=== PATIENT | female | born 1975 | race Caucasian/White ===

== ENCOUNTER 2016-11-05 07:12 | Inpatient (IN) | payer BC ==
[~2016-11-05 07:12] MED LIST: OXYTOCIN IN LR 500 ML IV ONE
[2016-11-05] MEDS ORDERED: LIDOCAINE 1% (PRES FREE) 30 ML VIAL ONE (07:35)
[2016-11-05] MEDS ORDERED: IV START KIT ONE (07:35)
[2016-11-05] MEDS ORDERED: SODIUM CHLORIDE 0.9% FLUSH 10 ML ONE (07:35)
[2016-11-05] MEDS ORDERED: OXYTOCIN 10 UNITS/ML VIAL ONE (07:35)
[2016-11-05] MEDS ORDERED: MINERAL OIL 25 ML BOT ONE (07:35)
[2016-11-05] MEDS ORDERED: LIDOCAINE Viscous 2% 15 ML UDCUP ONE (07:36)
[2016-11-05] MEDS ORDERED: PUMP TUBING ONE (07:36)
[2016-11-05] MEDS ORDERED: OXYTOCIN IN LR 500 ML IV ONE (07:36)
[2016-11-05] MEDS ORDERED: LACTATED RINGERS 1,000 ML IV SCH (08:00)
[2016-11-05] MEDS: LACTATED RINGERS 1,000 ML IV PRN ×2 (08:10→11:52)
[2016-11-05 08:13] VITALS: BMI 31.8
[2016-11-05] MEDS: OXYTOCIN IN LR 500 ML IV PRN ×2 (08:21→16:09)
[2016-11-05 08:26] LABS: HEMATOCRIT 33.8 % (37.0-47.0); HEMOGLOBIN 11.6 gm/l (12.0-16.0); MEAN CELL VOLUME 87.3 fl (81.0-99.0); MEAN CORPUSCULAR HGB CONC 34.3 g/dl (33.0-37.0); RED CELL DISTRIBUTION WIDTH 12.3 % (11.5-14.5)
--- NOTE | 2016-11-05 17:03 | PDOC36 ---
Provider Note Subject: S/ Painful contractions but coping O/ AF VSS FHT baseline 125, moderate variability, sometimes decreased. Early decels, a few accels, a few variables TOCO Q3 Pitocin 4 mu SVE on hands and knees 6/90% station not able to determine. IMP/P 39 week IUP Active labor, expectant managment. Continue to titrate pitocin and decrease if changes in tracing become worrisome. Will stay in house until delivery.
--- NOTE | 2016-11-05 17:23 | PDOC1 ---
- HPI 41 year old at 39-0/7 weeks gestational age by LMP, confirmed with 11- week ultrasound who presents for induction due to AMA. Her has been complicated by some constipation, anxiety and concerns about developing preeclampsia. She has had headaches without hypertension or signficant proteinuria. She has had some visual changes and sens of flashing lights and tracers in the 3rd trimester and evaluation for preeclampsia at that time was negative, phone consult was made with M at this time and elected to continue to follow and that perhaps her headaches were migraines or atypical migraines. She started a Magnesium supplement and that did seem to help. Today patient denies any changes in health. Her course has been followed for the following problem list. Severe Preeclampsia affecting prior with 32 week delivery. Was placed on Baby ASA 81 mg daily from 13-38 weeks AMA Headaches Glucosuria SOCIAL HISTORY: Marital status: to Eder No Tobacco, alcohol use, or drug use. FAMILY HISTORY: Noncontributory Allergies/Adverse Reactions: Allergies Sulfa (Sulfonamide Antibiotics) Allergy (Severe, Verified 11/02/16 20:30) Hives - Labs & Studies LABS: Blood Type-A+, Antibody NEG, Rubella Immune, RPR-Negative, HbsAg-Negative, HIV-Negative Pap negative, GC/Chlamydia-Negative, UA-Negative, Quad/Integrated Screen-Negative--NIPT, 1 hr GTT-146, 3 hr GTT normal, GBS-negative - Review of Systems Some headaches and tracers More anxiety over the weekend and some decreased FM--was seen at [facility] and had reactive NST - Physical Exam General: Afebrile Psych/Mental Status: Mood/Affect Appropriate, Anxious Neurological: Grossly Intact, Alert, Oriented x 4 Genitourinary: Normal Female Genitalia (SVE 3/50/-3 FHT 140 moderate variablity with accels TOCO irregular) Extremities: Full ROM, No Edema - Assessment & Plan 41 y/o at 393-0/7 weeks by LMP who will present for elective induction due to AMA Discussed the risk of induction and indication. We are both pleased that she has made it to 39 weeks without needing induced. She is ready to move forward. She does not appear to need any further cervical ripening with a Bishops of 6. I recommended to her that we start with Pitocin and AROM when head is low enough to do so safely and hopefully her body will take over and we can titrate back on the Pitocin. Questions were solicited and answered to their apparent satisfaction.
--- NOTE | 2016-11-05 17:26 | PDOC36 ---
Provider Note Subject: S/ Managing contractions on Pitocin 5 mu 0/ Pitocin 5 mu FHT 130 mod variability +Accels, rare variable TOCO Q3 SVE /-2 AROM clear A/P 41 yo at 39 weeks induction for AMA AROM--doing well continue with plan, titrate pitocin down if her body takes over into active labor
[2016-11-05] MEDS ORDERED: MINERAL OIL 25 ML BOT TP ONE (17:59)
[2016-11-05] MEDS ORDERED: FENTANYL 100 MCG/2 ML VIAL IV ONE (18:09)
[2016-11-05] MEDS ORDERED: LIDOCAINE 1% (PRES FREE) 30 ML VIAL SUB-Q ONE (18:19)
[2016-11-05] MEDS ORDERED: LACTATED RINGERS 1,000 ML IV PRN (19:19)
[2016-11-05] MEDS ORDERED: CALCIUM CARBONATE 500 MG TAB.CHEW PO PRN (19:19)
[2016-11-05] MEDS ORDERED: LANOLIN 50 APPLIC/7G TUBE TP PRN (19:19)
[2016-11-05] MEDS ORDERED: OXYCODONE HCL 5 MG TABLET PO PRN (19:19)
--- NOTE | 2016-11-05 19:29 | PCMDEL ---
Delivery Note - Labor 1st stage (hr/min):: 1336--1756 2 hours 20 minutes 2nd stage (hr/min):: 1756--1801 5 minutes 3rd stage (hr/min):: 1801--1808 7 minutes Total (hr/min):: 2hours 32 minutes - Delivery Delivery (Date): 11/05/16 Delivery (Time): 18:01 Gender: Male Weight: 4.135 kg Presentation: Cephalic Position: OA Umbilical Cord: 3 Vessel, True Knot (loose knot) Delayed Cord Clamping:: > 3 min 1 Minute Total: 9 5 Minute Total: 9 Placenta:: intact EBL:: 500mls Perineum:: 2nd degree repaired with 3-0 vicryl. Suture:: 3-0 vicryl Anesthesia/Meds:: 40mls lidocaine Length ROM:: 1336--1801 4 hours 25 minutes Comments:: Shoulder dystocia for 40 seconds. Pt not pushing and would not bring her legs up, difficult to get her legs up and unable to have RN reach for suprapubic pressure. Right hand was inserted into vagina and posterior arm was able to be grasped and swept cupping elbow x 2 attempts to reduce shoulder and then with gentle downward pressure of the head the anterior shoulder was delivered.
[2016-11-05] MEDS: IBUPROFEN 800 MG TABLET PO SCH (20:13)
[2016-11-05] MEDS: BENZOCAINE/MENTHOL 60 APPLIC/BOT TP PRN (20:20)
[2016-11-05] MEDS: HYDROCODONE/ACETAMINOPHEN 5/325MG TABLET PO PRN (20:41)
[2016-11-05] MEDS: DOCUSATE SODIUM 100 MG CAPSULE PO SCH (20:59)
[2016-11-06] MEDS: IBUPROFEN 800 MG TABLET PO SCH ×4 (02:33→21:20)
[2016-11-06] MEDS: HYDROCODONE/ACETAMINOPHEN 5/325MG TABLET PO PRN ×3 (02:33→18:14)
[2016-11-06 07:17] LABS: HEMATOCRIT 28.6 % (37.0-47.0); HEMOGLOBIN 9.7 gm/l (12.0-16.0)
[2016-11-06] MEDS: DOCUSATE SODIUM 100 MG CAPSULE PO SCH (08:35)
--- NOTE | 2016-11-06 14:13 | PDOC44 ---
- Subjective Day: 1 Reports Pain Tolerable, Reports , Reports Lochia Light, Reports Tolerating Regular Diet - Objective Temp Pulse Resp BP Pulse Ox 98.0 F 76 16 103/63 11/06/16 08:25 11/06/16 08:25 11/06/16 08:25 11/06/16 08:25 Lab Results 11/06/16 06:58 Hgb 9.7 L Hct 28.6 L Current Medications Generic Name Dose Route Start Last Admin Trade Name Freq PRN Reason Stop Dose Admin Acetaminophen/Hydrocodone Bitart 1 - 2 tab 11/05/16 19:19 11/06/16 11:50 [place] 5/325 PO 1 tab Q4H PRN Administration Pain (Moderate) Benzocaine/Menthol 1 applic 11/05/16 19:19 11/05/16 20:20 Dermoplast TP 1 bot PRN PRN Administration Patient Comfort Calcium Carbonate/Glycine 500 - 1,000 mg 11/05/16 19:19 Tums PO BID PRN Indigestion Docusate Sodium 100 mg 11/05/16 19:30 11/06/16 08:35 Colace PO 100 mg DAILY NOÉ Administration Emollient Ointment 1 applic 11/05/16 19:19 Ecq-H-Qfdses TP PRN PRN sore nipples Lactated Ringer's 1,000 mls @ 100 mls/hr 11/05/16 19:19 Lactated Ringers IV .Q10H PRN Titrate per clinical situation Ibuprofen 800 mg 11/05/16 19:30 11/06/16 08:35 Motrin PO 800 mg Q6H NOÉ Administration Oxycodone HCl 5 - 10 mg 11/05/16 19:19 Roxicodone PO Q3H PRN Pain (Severe) Sodium Chloride 10 ml 11/05/16 19:19 Normal Saline 10ml Flush IV PRN PRN IV Flush - Physical Exam General: Afebrile Psych/Mental Status: Mood/Affect Appropriate, Judgment/Insight Intact, Bonding Well Neurological: Grossly Intact, Alert, Oriented x 4 Lungs: Clear to Auscultation Bilaterally, Normal Air Movement Cardiovascular: Regular Rate and Rhythm, Normal S1, Normal S2 Fundus: Firm, Below Umbilicus Abdomen: No Tenderness, No Distention Extremities: Full ROM, Edema, No Cyanosis, No Tenderness Skin: Normal Color, Warm, Dry, Intact - Problems:Assessment/Plan (1) Normal vaginal delivery Status: Acute Assessment/Plan: doing well PPD #1, routine care (2) AMA (advanced maternal age) multigravida 35+ Status: Acute (3) Second degree perineal laceration during delivery, delivered Status: Acute (4) Anemia Qualifiers: Anemia type: iron deficiency Status: Acute Assessment/Plan: continue PNV Disposition: Stable, Anticipate DC Home Tomorrow
[2016-11-06] MEDS ORDERED: VALACYCLOVIR 500 MG TABLET PO ONE (21:00)
[2016-11-06] MEDS ORDERED: BISACODYL 5 MG TABLET.EC PO SCH (21:00)
[2016-11-07] MEDS: IBUPROFEN 800 MG TABLET PO SCH (05:22)
[2016-11-07 08:26] VITALS: BP 103/59
[2016-11-07] MEDS: BENZOCAINE/MENTHOL 60 APPLIC/BOT TP PRN (10:14)
--- NOTE | 2016-11-07 10:30 | PDOC39B ---
ADMIT DATE: 11/05/16 DISCHARGE DATE: ADMISSION DIAGNOSES: 39 week IUP Advanced Maternal Age DISCHARGE DIAGNOSES: 39 week IUP Advanced Maternal Age Large for Gestational age Shoulder Dystocia Iron deficiency Anemia PROCEDURES: Vaginal delivery and repair of 2nd degree perineal laceration HISTORY OF PRESENT ILLNESS: 41 year old at 39 weeks 0 days presenting for induction due to AMA. She has a hx of severe preeclampsia with a prior and a 32 week delivery. She developed headaches similar to her prior but her Preeclampsia evaluation and 24 hour urine remained with in the normal ranges without hypertension during this . She was treated prophylactically with ASA 81mg daily, which was stopped 1 week prior to delivery. She was admitted and started on Pitocin and progressed and we were able to AROM with clear fluid and went on to deliver a vialble male infant over 2nd degree perineal laceration. See delivery note for details. Of note there was a true knot in the cord that was loose at the time of delivery DELIVERY INFORMATION: Delivery Date/Time: 11/05/16 @ 18:01 Weight: 4.132 kg Totals: 1 minute 9, 5 minute 9 Lacerations: 2nd degree repaired with 3-0 vicryl. Repair: 3-0 vicryl Anesthesia/Meds: 40mls lidocaine Blood Loss: 500mls HOSPITAL COURSE: The patient did well PP and without complications By day of discharge the patient is ambulating, eating, voiding, and passing flatus without difficulty. Pain is controlled and lochia is appropriate. She is . - Physical Exam Vital Signs: Temp Pulse Resp BP Pulse Ox 98.0 F 70 16 104/63 11/07/16 01:35 11/07/16 05:29 11/07/16 01:35 11/07/16 05:29 General: Afebrile Psych/Mental Status: Mood/Affect Appropriate, Judgment/Insight Intact, Bonding Well, No Anxious Neurological: Grossly Intact, Oriented x 4 Lungs: Clear to Auscultation Bilaterally, Normal Air Movement Cardiovascular: Regular Rate and Rhythm, Normal S1, Normal S2, No Murmur Fundus: Below Umbilicus Abdomen: No Tenderness, No Distention Extremities: Full ROM, Edema, No Cyanosis, No Tenderness Skin: Normal Color, Warm, Dry, Intact - Discharge Diagnosis (1) Normal vaginal delivery Status: Acute Assessment/Plan: doing well PPD #2, routine care. Home today with f/u 6 weeks (2) AMA (advanced maternal age) multigravida 35+ Status: Acute (3) Second degree perineal laceration during delivery, delivered Status: Acute (4) Anemia Qualifiers: Anemia type: iron deficiency Status: Acute Assessment/Plan: continue PNV - Discharge Plan Condition: Good Disposition: Home Instruction Forms: Vaginal Discharge Instructions Prescriptions: Ibuprofen [IBUPROFEN 800 MG TABLET (SHF)] 800 mg PO Q8H #30 tablet Hydrocodone Bit/Acetaminophen [NORCO 5/325 MG TABLET (SHF)] 1 - 2 tab PO Q4H PRN #15 tablet PRN Reason: Pain (Moderate) Follow-Up: Loreta Saha MD [Primary Care Provider] - In 6 weeks
== END 2016-11-07 10:56 | disposition home or self-care (01) | DRG 775 ==
LOC: FBC 07:12 → EDSTATUS 11-12 22:07
PROVIDERS: ADMIT Family Medicine; ATTEND Family Medicine
PROC: 10E0XZZ Delivery of Products of Conception, External Approach (ICD-10-PCS; principal; 2016-11-05)
PROC: 0KQM0ZZ Repair Perineum Muscle, Open Approach (ICD-10-PCS; 2016-11-05)
PROC: 3E033VJ Introduction of Other Hormone into Peripheral Vein, Percutaneous Approach (ICD-10-PCS; 2016-11-05)
DX: O99.344 Other mental disorders complicating childbirth (principal); F41.9 Anxiety disorder, unspecified; O76 Abnormality in fetal heart rate and rhythm complicating labor and delivery; O69.2XX0 Labor and delivery complicated by other cord entanglement, with compression, not applicable or unspecified; O70.1 Second degree perineal laceration during delivery; O66.0 Obstructed labor due to shoulder dystocia; O75.89 Other specified complications of labor and delivery; R51 Headache; K59.00 Constipation, unspecified; Z79.82 Long term (current) use of aspirin; Z88.2 Allergy status to sulfonamides; O90.81 Anemia of the puerperium; D50.9 Iron deficiency anemia, unspecified; O09.293 Supervision of pregnancy with other poor reproductive or obstetric history, third trimester; Z3A.39 39 weeks gestation of pregnancy; Z37.0 Single live birth